=== PATIENT | female | born 1955 | race Two or more races ===

== ENCOUNTER 2020-10-26 14:45 | Emergency (ER) | payer MEDICARE, MEDICAID ==
[~2020-10-26] VITALS: Ht 160 cm; Wt 86.2 kg
[2020-10-26] MEDS ORDERED: cefTRIAXone SOD 1,000 MG VL IM ONE (17:30)
[2020-10-26] MEDS ORDERED: LIDOCAINE 1% HCL (LOCAL ANESTH.) INJ 20ML MDV ONE (17:48)
[2020-10-26 17:50] VITALS: BP 103/56
== END 2020-10-26 17:55 | disposition home or self-care (01) ==
LOC: ER 14:45
DX: K11.20 Sialoadenitis, unspecified (principal); J44.9 Chronic obstructive pulmonary disease, unspecified; E11.9 Type 2 diabetes mellitus without complications
CPT/HCPCS: 96372; 99283; J0696; J2001

== ENCOUNTER 2024-04-05 11:35 | Inpatient (IN) | payer MEDICARE, MEDICAID ==
[~2024-04-05] VITALS: Ht 157.5 cm; Wt 86.3 kg
[2024-04-05] MEDS: SODIUM CHLORIDE 0.9% 1,000 ML IV ONE (13:18)
[2024-04-05] MEDS: cefTRIAXone 1GM/50ML D5W 50 ML IV ONE (13:24)
[2024-04-05] MEDS: ALBUTEROL SULF 2.5 MG/0.5ML(0.5%) NEB SOLN NEB ONE ×2 (13:27→13:35)
[2024-04-05] MEDS: IPRATROPIUM BROM 0.5 MG/2.5ML INH SOL NEB ONE ×2 (13:28→13:36)
[2024-04-05] MEDS: AZITHROMYCIN 500MG/ 250ML 250 ML IV ONE (13:33)
[2024-04-05] MEDS: methylPREDNISolone SOD SUCC 125 MG/2 ML VL IV ONE (13:36)
[2024-04-05 13:48] LABS: Basophils # (auto) 0.1 10 ^3/uL (0-0.2); Basophils % (auto) 0.7 % (0.0-2.0); Eosinophils # (auto) 0.5 10 ^3/uL (0-0.8); Eosinophils % (auto) 4.7 % (0.0-7.0); Hematocrit 36.8 % (36.0-46.0); Hemoglobin 11.7 g/dL (12.2-16.2); Lymphocytes # (auto) 3.9 10 ^3/uL (0.4-5.4); Lymphocytes % (auto) 40.1 % (10.0-50.0); Mean Corpuscular Hgb Conc. 31.9 g/dL (32.0-36.0); Mean Corpuscular Volume 84.4 fL (80.0-100.0); Monocytes % (auto) 9.9 % (0.0-12.0); Neutrophils # (auto) 4.3 10 ^3/uL (1.6-8.6); Neutrophils % (auto) 44.6 % (37.0-80.0); Nucleated Red Blood Cells % 0.1 %; Red Blood Cells 4.36 10^6/uL (4.0-5.20); Red Cell Distribution Width 16.9 % (11.8-14.3); White Blood Cell 9.8 10^3/uL (4.4-10.8)
[2024-04-05 13:49] LABS: Urine Bacteria MOD /hpf (None Seen); Urine Blood 1+ /uL (Negative); Urine Clarity Ex.Turbid (Clear); Urine Color Yellow (Yellow); Urine Protein, UAD 1+ (Negative); Urine Specific Gravity 1.018 (1.001-1.035); Urine Urobilinogen Normal (Negative); Urine WBC 1484 /hpf (0 - 5); Urine WBC Clumps PRESENT /hpf (None Seen); Urine pH 5.5 (5.0-9.0)
[2024-04-05 13:54] LABS: Chloride 106 mmol/L (98-107); Potassium 4.5 mmol/L (3.5-5.1); Sodium 139 mmol/L (136-145)
[2024-04-05 13:55] LABS: Anion Gap 7 (5-15); Carbon Dioxide 26 mmol/L (20-30)
[2024-04-05 14:00] LABS: Glucose 89 mg/dL (74-106)
[2024-04-05 14:01] LABS: BUN/Creatinine Ratio 10.4 (10.0-20.0); Blood Urea Nitrogen 12 mg/dL (9-23)
[2024-04-05 14:11] LABS: COVID19 ANTIGEN SOFIA FIA POSITIVE (NEGATIVE)
[2024-04-05 14:19] LABS: Lactic Acid w/Reflex 2.1 mmol/L (0.4-2.0)
[2024-04-05 14:40] VITALS: PULSE 82; RESP 18; O2SAT 93
[2024-04-05] MEDS: ONDANSETRON HCL 4 MG/2 ML VIAL IV ONE (14:48)
[2024-04-05] MEDS: ACETAMINOPHEN 500 MG TAB PO ONE (14:48)
[2024-04-05] MEDS ORDERED: HYDROmorphone HCL 2 MG/ML VL/or syr IV PRN (15:00)
[2024-04-05] MEDS ORDERED: DOCUSATE SOD 100 MG CAP PO PRN (15:00)
[2024-04-05] MEDS ORDERED: ONDANSETRON HCL 4 MG/2 ML VIAL IV PRN (15:00)
[2024-04-05] MEDS: LACTATED RINGER'S 1,000 ML IV ONE (16:16)
[2024-04-05] MEDS: methylPREDNISolone SOD SUCC 125 MG/2 ML VL IV SCH (16:17)
[2024-04-05 17:50] VITALS: BP 138/51; PULSE 70; RESP 18; TEMP 98.6; O2SAT 100
[2024-04-05 18:26] VITALS: BP 138/51; PULSE 70; RESP 18; TEMP 98.6; O2SAT 100
[2024-04-05 20:10] VITALS: BP 124/56; PULSE 57; RESP 17; TEMP 98.6; O2SAT 97
[2024-04-05 21:00] VITALS: BP 143/66; PULSE 69; RESP 19; TEMP 97.8; O2SAT 99
[2024-04-05] MEDS: ACETAMINOPHEN 325 MG TAB PO PRN (21:40)
[2024-04-05] MEDS: SODIUM CHLOR 0.9% PF (SALINE LOCK) 10ML VIAL/SYR IV SCH (21:47)
[2024-04-06] VITALS (11 sets, daily range): BP systolic 121–145; BP diastolic 56–78; PULSE 57–78; RESP 16–19; TEMP 97.8–98.7; O2SAT 97–98
[2024-04-06] MEDS: HYDROcodone-ACET 5/325MG TAB PO PRN (02:18)
[2024-04-06] MEDS: cefTRIAXone 1GM/50ML D5W 50 ML IV SCH (09:26)
[2024-04-06] MEDS: AZITHROMYCIN 500MG/ 250ML 250 ML IV SCH (10:38)
[2024-04-06] MEDS: ENOXAPARIN SOD 40 MG/0.4 ML SYRINGE SC SCH (10:38)
[2024-04-06] MEDS ORDERED: REMDESIVIR PER PHARMACY 0 ML IV SCH ×2 (13:45→18:00)
[2024-04-06] MEDS ORDERED: DEXTROSE (50%) 50ML SYRG IV PRN (13:45)
[2024-04-06 14:21] LABS: Alanine Aminotransferase 16 U/L (7-40); Albumin 4.2 g/dL (3.2-4.8); Alkaline Phosphatase 70 U/L (46-116); Aspartate Aminotransferase 24 U/L (13-40); Bilirubin, Total 0.2 mg/dL (0.2-1.0); Total Protein 7.4 g/dL (5.7-8.2)
[2024-04-06 14:37] LABS: Bilirubin, Direct < 0.1 mg/dL (<0.3)
[2024-04-06] MEDS: ALBUTEROL SULF HFA 90MCG INH 200DOSE IN PRN (15:05)
[2024-04-06] MEDS: REMDESIVIR 200 MG in NS 210ml LOADING DOSE ADULT IV ONE (16:30)
[2024-04-06] MEDS: ACCU-CHEK COMFORT CURVE STRIP VI SCH (16:43)
[2024-04-06] MEDS: PROMETHAZINE W/CODEINE 5 ML ORAL SYRUP PO PRN (16:51)
[2024-04-06] MEDS: InsuLIN REG 1unit/0.01ml Soln (100units/ml) SC SCH (16:51)
[2024-04-06] MEDS: BUDESONIDE (INHALATION) 180 MCG IH IN SCH (21:33)
[2024-04-07] VITALS (12 sets, daily range): BP systolic 135–146; BP diastolic 64–80; PULSE 61–98; RESP 18–19; TEMP 97.6–98.6; O2SAT 93–98
[2024-04-07 05:57] LABS: Basophils # (auto) 0 10 ^3/uL (0-0.2); Eosinophils # (auto) 0 10 ^3/uL (0-0.8); Hemoglobin 9.8 g/dL (12.2-16.2); Monocytes # (auto) 0.3 10 ^3/uL (0-1.3); Monocytes % (auto) 2.4 % (0.0-12.0)
[2024-04-07 06:00] LABS: Basophils % (auto) 0.1 % (0.0-2.0); Hematocrit 30.1 % (36.0-46.0); Lymphocytes # (auto) 1.4 10 ^3/uL (0.4-5.4); Lymphocytes % (auto) 10.7 % (10.0-50.0); Mean Corpuscular Hemoglobin 27.5 pg (28.0-32.0); Mean Corpuscular Hgb Conc. 32.6 g/dL (32.0-36.0); Mean Corpuscular Volume 84.2 fL (80.0-100.0); Neutrophils # (auto) 11.1 10 ^3/uL (1.6-8.6); Neutrophils % (auto) 86.8 % (37.0-80.0); Red Blood Cells 3.58 10^6/uL (4.0-5.20); Red Cell Distribution Width 16.6 % (11.8-14.3); White Blood Cell 12.8 10^3/uL (4.4-10.8)
[2024-04-07 06:10] LABS: Alanine Aminotransferase 16 U/L (7-40); Albumin 4.1 g/dL (3.2-4.8); Alkaline Phosphatase 64 U/L (46-116); Anion Gap 4 (5-15); Aspartate Aminotransferase 19 U/L (13-40); BUN/Creatinine Ratio 17.1 (10.0-20.0); Blood Urea Nitrogen 13 mg/dL (9-23); Calcium 9.7 mg/dL (8.5-10.1); Carbon Dioxide 25 mmol/L (20-30); Chloride 107 mmol/L (98-107); Glucose 160 mg/dL (74-106); Potassium 4.5 mmol/L (3.5-5.1); Sodium 136 mmol/L (136-145)
[2024-04-07 06:11] LABS: Bilirubin, Total 0.2 mg/dL (0.2-1.0); Total Protein 6.9 g/dL (5.7-8.2)
[2024-04-07] MEDS: ZINC SULFATE 220mg CAP or TAB PO SCH (09:46)
[2024-04-07] MEDS: REMDESIVIR 100mg 100 MG in SODIUM CHL 0.9% 230 ML IV SCH (15:26)
[2024-04-08] VITALS (10 sets, daily range): BP systolic 140–165; BP diastolic 70–94; PULSE 61–90; RESP 18–21; TEMP 97.9–98.4; O2SAT 93–97
[2024-04-08] MEDS: hydrALAZINE HCL 20 MG/ML VL IV PRN (18:12)
[2024-04-09] VITALS (11 sets, daily range): BP systolic 145–158; BP diastolic 64–85; PULSE 60–78; RESP 16–65; TEMP 97.7–98.7; O2SAT 20–97
[2024-04-10 00:54] VITALS: BP 141/52; PULSE 66; RESP 20; TEMP 98; O2SAT 95
[2024-04-10 05:00] VITALS: BP 139/74; PULSE 60; RESP 20; TEMP 98; O2SAT 97
[2024-04-10 08:00] VITALS: PULSE 57
[2024-04-10 09:00] VITALS: BP 146/72; PULSE 65; RESP 16; TEMP 97.7; O2SAT 95
[2024-04-10 10:20] VITALS: PULSE 65; RESP 18; O2SAT 97
[2024-04-10] MEDS ORDERED: AZITTAB PO ×2 (11:12→15:51)
[2024-04-10] MEDS ORDERED: METH4PAK PO ×2 (11:12→15:51)
[2024-04-10] MEDS ORDERED: CHOL1CAP47 PO ×2 (11:13→15:51)
[2024-04-10] MEDS ORDERED: ASCO500T11 PO ×2 (11:13→15:51)
[2024-04-10] MEDS ORDERED: ZINC220C10 PO ×2 (11:13→15:51)
[2024-04-10 13:00] VITALS: BP 146/84; PULSE 63; RESP 16; TEMP 98.4; O2SAT 95
== END 2024-04-10 17:15 | disposition home or self-care (01) | DRG 137 ==
LOC: ER 11:35 → OVERFLOW 15:06 → EAST 17:50 → TELE-EAST 04-06 13:54
PROVIDERS: ADMIT Internal Medicine; ATTEND Internal Medicine Geriatric Medicine
PROC: XW033E5 Introduction of Remdesivir Anti-infective into Peripheral Vein, Percutaneous Approach, New Technology Group 5 (ICD-10-PCS; principal; 2024-04-06)
DX: U07.1 COVID-19 (principal); J96.01 Acute respiratory failure with hypoxia; J12.82 Pneumonia due to coronavirus disease 2019; E87.20 Acidosis, unspecified; J45.901 Unspecified asthma with (acute) exacerbation; J44.0 Chronic obstructive pulmonary disease with (acute) lower respiratory infection; N39.0 Urinary tract infection, site not specified; J44.1 Chronic obstructive pulmonary disease with (acute) exacerbation; E11.9 Type 2 diabetes mellitus without complications; E03.9 Hypothyroidism, unspecified; I10 Essential (primary) hypertension; H92.01 Otalgia, right ear; F03.90 Unspecified dementia, unspecified severity, without behavioral disturbance, psychotic disturbance, mood disturbance, and anxiety; Z79.899 Other long term (current) drug therapy
CPT/HCPCS: 36415; 71045; 80048; 80053; 80076; 81001; 82728; 82962; 83036; 83605; 85025; 85379; 86141; 87040; 87426; 94640; 96361; 96365; 96368; 96375; G0378; J1815; J2405

== ENCOUNTER 2024-11-05 16:20 | Emergency (ER) | payer MEDICARE, MEDICAID ==
[~2024-11-05] VITALS: Ht 157.5 cm; Wt 77.2 kg
[~2024-11-05 16:20] MED LIST: ASCO500T11 PO; AZITTAB PO; CHOL1CAP47 PO; METH4PAK PO; ZINC220C10 PO
--- NOTE | 2024-11-05 16:38 | ED.PDOC ---
HPI (NEURO) HPI Comments 69y F who presents to the ED for chief complaint of generalized weakness. Pt states she has been having generalized weakness for the past 4 days. Pt states she has been having associated nausea, headache and R sided neck pain getting progressively worse. Pt states she been to PCP for similar complaints and states she was dx with migraines and given Imitrex and [place]. Pt otherwise denies any fall or injury. Pt is alert and oriented x 4 and able to answer all questions. Pt has noted stable vitals with temp of 97.6 F with all other vitals in normal range. Pt otherwise denies any recent sick contacts at this time. Patient states that she utilize the Imitrex, but it was not effective in reducing her headache. Vital signs were stable on arrival. Time Seen by MD: 16:36 Primary Care Provider: NOEMI Information Source: Patient Mode of Arrival: Ambulatory Brought in by: self Severity: Moderate Headache Severity: Moderate Timing: Days Duration: Since onset Prehospital treatment: None Headache Location: Occipital Onset: At rest Circumstances: Spontaneous Symptoms: None Before: Normal History of: Other (Patient states a history of migraine headaches.) Associated Signs and Symptoms: Headache Past Medical History PAST MEDICAL HISTORY: Asthma, COPD, DM, Thyroid Surgical History: Denies all surgeries CASTING ROOM HELPER History: No Pertinent CASTING ROOM HELPER History Family History Family History: Reviewed,noncontributory to illness Social History Smoker: Non-Smoker Alcohol: Occasionally Drugs: Denies Drug Use Lives In: Home Constitutional: reports: malaise, weakness; denies: chills, diaphoresis, fatigue, fever, sweats, others EENTM: denies: blurred vision, double vision, ear bleeding, ear discharge, ear drainage, ear pain, ear ringing, eye pain, eye redness, hearing loss, mouth pain, mouth swelling, nasal discharge, nose bleeding, nose congestion, nose pain, photophobia, tearing, throat pain, throat swelling, voice changes, others Respiratory: denies: cough, hemoptysis, orthopnea, SOB at rest, shortness of breath, SOB with excertion, stridor, wheezing, others Cardiovascular: denies: chest pain, dizzy spells, diaphoresis, Dyspnea on exertion, edema, irregular heart beat, left arm pain, lightheadedness, palpitations, PND, syncope, others Gastrointestinal: reports: nausea; denies: abdomen distended, abdominal pain, blood streaked bowels, constipated, diarrhea, dysphagia, difficulty swallowing, hematemesis, melena, poor appetite, poor fluid intake, rectal bleeding, rectal pain, vomiting, others Genitourinary: denies: abnormal vagina bleeding, burning, dyspareunia, dysuria, flank pain, frequency, hematuria, incontinence, pain, , vagina discharge, urgency, others Neurological: reports: headache, weakness; denies: dizziness, fainting, left sided numbness, left sided weakness, numbness, paresthesia, pre-existing deficit, right sided numbness, right sided weakness, seizure, speech problems, tingling, tremors, others Musculoskeletal: reports: neck pain; denies: back pain, gout, joint pain, joint swelling, muscle pain, muscle stiffness, others Integumetry: denies: bruises, change in color, change in hair/nails, dryness, laceration, lesions, lumps, rash, wounds, others Allergic/Immunocompromised: denies: Difficulty Healing, Frequent Infections, Hives, Itching, others Hematologic/Lymphatic: denies: anemia, blood clots, easy bleeding, easy bruising, swollen glands, others Endocrine: denies: excessive hunger, excessive sweating, excessive thirst, excessive urination, flushing, intolerance to cold, intolerance to heat, unexplained weight gain, unexplained weight loss, others Psychiatric: denies: anxiety, bipolar disorder, depression, hopeless, panic disorder, schizophrenia, sleepless, suicidal, others All Other Systems: Reviewed and Negative Physical Exam General Appearance: Moderate Distress ([id number] distress due to right- sided head and neck pain. Patient did not look toxic.), Normal HEENT: Head (Unremarkable cranial evaluation. No signs of trauma. No skull depressions or deformities.), Normal ENT Inspection, Pharynx Normal, TMs Normal Neck: Other (Diffuse bilateral posterior cervical tenderness to palpation with right-sided greater than left. Moderate hypertonicity appreciated. No chao or raccoon signs. Moderate reduced range of motion.) Respiratory: Chest Non-Tender, Lungs Clear, No Accessory Muscle Use, No Respiratory Distress, Normal Breath Sounds Cardiovascular: No Edema, No JVD, No Murmur, No Gallop, Normal Peripheral Pulses, Regular Rate/Rhythm Breast Exam: Deferred Gastrointestinal: No Organomegaly, Non Tender, No Pulsatile Mass, Normal Bowel Sounds, Soft Genitalia: Deferred Pelvic: Deferred Rectal: Deferred Extremities: No calf tenderness, Normal capillary refill, Normal inspection, Normal range of motion, Non-tender, No pedal edema Neurologic: Alert, molder machine II-XII nml as Tested, No Motor Deficits, Normal Affect, Normal Mood, No Sensory Deficits Cerebellar Function: Normal Reflexes: Normal Skin: Dry, Normal Color, Warm Lymphatic: No Adenopathy Was a procedure done? Was a procedure done?: No Differential Diagnosis (SZ) General Weakness: Anemia, Dehydration, Electrolyte imbalance, Encephalopathy, Hypoglycemia Headache: Migraine, Sinusitis, Other (Hemorrhage, subdural hematoma, migraine, cervical vertebrae fracture, degenerative disc disease of the cervical spine with neuropathy) X-Ray, Labs, Meds, VS Vital Signs Date Time Temp Pulse Resp B/P (MAP) Pulse Ox O2 Delivery O2 Flow Rate FiO2 11/05/24 17:44 74 18 74 Room Air 11/05/24 17:44 74 18 117/84 (95) 96 11/05/24 16:35 73 11/05/24 16:33 97.6 72 18 128/67 (87) 98 Lab Test 11/05/24 16:50 Range/Units White Blood Count 5.7 4.4-10.8 10^3/uL Red Blood Count 4.31 4.0-5.20 10^6/uL Hemoglobin 11.6 L 12.2-16.2 g/dL Hematocrit 35.9 L 36.0-46.0 % Mean Corpuscular Volume 83.3 80.0-100.0 fL Mean Corpuscular Hemoglobin 26.9 L 28.0-32.0 pg Mean Corpuscular Hemoglobin Concent 32.3 32.0-36.0 g/dL Red Cell Distribution Width 18.1 H 11.8-14.3 % Platelet Count 326 140-450 10^3/uL Mean Platelet Volume 6.7 L 6.9-10.8 fL Neutrophils (%) (Auto) 59.5 37.0-80.0 % Lymphocytes (%) (Auto) 30.3 10.0-50.0 % Monocytes (%) (Auto) 7.2 0.0-12.0 % Eosinophils (%) (Auto) 2.7 0.0-7.0 % Basophils (%) (Auto) 0.3 0.0-2.0 % Neutrophils # (Auto) 3.4 1.6-8.6 10 ^3/uL Lymphocytes # (Auto) 1.7 0.4-5.4 10 ^3/uL Monocytes # (Auto) 0.4 0-1.3 10 ^3/uL Eosinophils # (Auto) 0.2 0-0.8 10 ^3/uL Basophils # (Auto) 0 0-0.2 10 ^3/uL Nucleated Red Blood Cells 0.1 % Sodium Level 138 136-145 mmol/L Potassium Level 3.5 3.5-5.1 mmol/L Chloride Level 108 H 98-107 mmol/L Carbon Dioxide Level 19 L 20-31 mmol/L Anion Gap 11 5-15 Blood Urea Nitrogen 14 9-23 mg/dL Creatinine 0.89 0.550-1.02 mg/dL Glomerular Filtration Rate Calc 70 >90 mL/min BUN/Creatinine Ratio 15.7 10.0-20.0 Serum Glucose 91 74-106 mg/dL Calcium Level 9.7 8.7-10.4 mg/dL Troponin I High Sensitivity 3 L </=34 ng/L Current Medications Medications (Trade) Dose Ordered Sig/Jos Route Start Time Stop Time Status Last Admin Metoclopramide HCl (Reglan Injection) 10 mg ONCE ONCE IM 11/05/24 16:45 11/05/24 16:46 DC 11/05/24 17:43 Ondansetron HCl (Zofran) 4 mg ONCE ONCE IM 11/05/24 16:45 11/05/24 16:46 DC 11/05/24 17:43 [place] [id number] Ph: [phone] DIAGNOSTIC IMAGING Diagnostic Imaging Report : [id number] Signed PATIENT: CELENA IQBAL ACCT: [id number] UNIT: [id number] : 1955 LOC: ER ROOM / BED: / AGE / SEX: 69 / F ADM STATUS: REG ER SERVICE 1631 ORDERING PHYSICIAN: CESAR HANKINS PAC PROCEDURE(s): HWOCT - HEAD WITHOUT CONTRAST REASON: Right-sided posterior headache ORDER NUMBER(s): [id number], ACCESSION NUMBER(s): [id number] CLINICAL HISTORY: Right-sided posterior headache TECHNIQUE: Helical imaging carried out from skull base to vertex without intravenous contrast. This exam was performed according to our departmental dose optimization program. Up-to-date CT equipment and radiation dose reduction techniques are utilized as appropriate. CTDIVol: [CTDIvol] mGy DLP: 805.23 mGy-cm WID: COMPARISON: None FINDINGS: Incidental bilateral basal ganglia calcifications. The ventricles and subarachnoid spaces are normal in size and configuration for patient age. Mild patchy low attenuation in the cerebral white matter consistent with nonspecific white matter disease. There is no midline shift or mass effect. The hernandez white matter interfaces are maintained. The basal cisterns are patent. There is no evidence of acute intracranial hemorrhage or extra-axial fluid collection. The mastoid air cells and visualized paranasal sinuses are well-aerated. Prior ocular lens replacement. IMPRESSION: 1. No acute intracranial abnormality. 2. Mild chronic microvascular ischemic change. ATED BY: DORIS GOMEZ MD DICTATED DATE/TIME: 11/05/241725 SIGNED BY: DORIS GOMEZ MD SIGNED DATE/TIME: 11/05/241725 CC: [place] [id number] Ph: [phone] DIAGNOSTIC IMAGING Diagnostic Imaging Report : [id number] Signed PATIENT: CELENA IQBAL ACCT: [id number] UNIT: [id number] : 1955 LOC: ER ROOM / BED: / AGE / SEX: 69 / F ADM STATUS: REG ER SERVICE 1631 ORDERING PHYSICIAN: CESAR HANKINS PAC PROCEDURE(s): CS2 - CERVICAL WITHOUT CONTRAST REASON: Right-sided head and neck pain ORDER NUMBER(s): [id number], ACCESSION NUMBER(s): [id number] EXAM: CT CERVICAL WITHOUT CONTRAST INDICATION: Right-sided head and neck pain EXAM DATE: 11/05/2024 04:53 PM COMPARISON: None TECHNIQUE: Multiple axial CT images of the cervical spine were obtained using bone algorithm. Axial and coronal reformatting was done. Bone and soft tissue windows were reviewed. Radiation Dose Information: CT Dose: CTDI volume is 19.47 mGy. Dose-length product is 404.42 mGy*cm FINDINGS: The cervical alignment is intact. No acute cervical spine fracture is identified. The vertebral body heights are intact. No suspicious osseous lesions are identified. Degenerative disc changes worse at C3-4 C5-C6. Grade 1 anterior spondylolisthesis C3-4 Reversal of the normal cervical lordotic curve at C3-C4 and C5. Severe degenerative disc changes at C4-C5 and C6. There is no prevertebral soft tissue swelling. IMPRESSION: 1. No evidence of acute cervical spine fracture or traumatic malalignment. 2. Severe degenerative disc changes at C4-C5 and C6. 3. Grade 1 anterior spondylolisthesis C3-4 4. Reversal of the normal cervical lordotic curve at C3-C4 and C5. All CT scans at this medical facility are performed using dose modulation techniques as appropriate to a performed exam including the following: Automated exposure control was utilized; adjustment of the MA and/or KV according to patient size; and use of iterative reconstruction technique. ATED BY: JAZZ JACOBS Jr., DO DICTATED DATE/TIME: 11/05/241718 SIGNED BY: JAZZ JACOBS Jr., SIGNED DATE/TIME: 11/05/241718 CC: X-Ray, Labs, Meds, VS Comment All studies performed the ED were evaluated by me personally. Laboratories were unremarkable for any acute systemic process. EKG was unremarkable for any acute coronary concerns. CT of the head was unremarkable for any cranial concern or mass. Cervical spine CT revealed degenerative disc disease at multiple levels. I believe that is the culprit for the patient's neck and headache pain concerns. Advised patient follow up with the primary care provider for discussions related to long-term management. Time of 1ST Reevaluation: 18:04 Reevaluation 1ST: Improved Consultation: PCP, Other (Orthopedist) Patient Education/Counseling: Diagnosis, Treatment Family Education/Counseling: Diagnosis, Treatment, No Family Present Additional Information - I reviewed the following notes from patient's past medical encounters: - The following tests were ordered, and results were reviewed by me: (Labs, X- Ray, EKG): troponin x 1, BMP, CBC, EKG x1, CT cervical without contrast, CT head without contrast, - Additional information was gathered from interviewing the following independent Historian: (Family, Other Providers, EMT): none - I reviewed and agreed with the following test results read by other provider: (X-ray, CT, US): radiologist - I discussed treatments and results with medical personnel and: (consultants, family): none Departure 1 Departure Time of Disposition: 18:04 Impression: Primary Impression: Degenerative joint disease of cervical spine Additional Impression: Cervical radiculopathy Disposition: HOME / SELF CARE / HOMELESS Condition: Stable Additional Instructions: Advised patient utilize medication as needed for symptomatic pain relief in additionally, patient needs to follow up with her primary care provider for continued discussions related to today's findings. e-Prescriptions Ondansetron Odt 4MG Tab (ZOFRAN PO) 4 Mg Tb 4 MG PO Q6HP PRN, #20 TAB ODT TAB-DISSOLVE IN MOUTH, THEN SWALLOW Prov: CESAR HANKINS PAC 11/05/24 Gabapentin (Gabapentin) 300 Mg Cap 1 CAP PO Q6HP PRN, #20 CAP 0 Refills Prov: CESAR HANKINS PAC 11/05/24 Discharged With: Self, Friend Critical Care Note Critical Care Time?: No Stability Stability form required: No Heart Score Heart Score: Heart Score Response (Comments) Value History Slightly Suspicious 0 EKG Repolarization Disturb 1 Age >65 2 Risk Factors 1 or 2 risk factors 1 Troponin Normal limit 0 Total 4 I personally scribed for CESAR HANKINS PAC ([email or web address]) on 11/05/24 at 16:38. Elec tronically submitted by Gabbi De Guzman ([email or web address]). I personally scribed for CESAR HANKINS PAC ([email or web address]) on 11/05/24 at 16:49. Electronically submitted by Gabbi De Guzman ([email or web address]). I personally scribed for CESAR HANKINS PAC ([email or web address]) on 11/05/24 at 17:59. Electronically submitted by Gabbi De Guzman ([email or web address]). CESAR HANKINS PAC Nov 05, 2024 16:38
[2024-11-05 17:13] LABS: Basophils # (auto) 0 10 ^3/uL (0-0.2); Basophils % (auto) 0.3 % (0.0-2.0); Eosinophils # (auto) 0.2 10 ^3/uL (0-0.8); Hemoglobin 11.6 g/dL (12.2-16.2); Mean Corpuscular Volume 83.3 fL (80.0-100.0); Nucleated Red Blood Cells % 0.1 %
[2024-11-05 17:15] LABS: Eosinophils % (auto) 2.7 % (0.0-7.0); Hematocrit 35.9 % (36.0-46.0); Lymphocytes # (auto) 1.7 10 ^3/uL (0.4-5.4); Lymphocytes % (auto) 30.3 % (10.0-50.0); Mean Corpuscular Hemoglobin 26.9 pg (28.0-32.0); Mean Corpuscular Hgb Conc. 32.3 g/dL (32.0-36.0); Monocytes # (auto) 0.4 10 ^3/uL (0-1.3); Monocytes % (auto) 7.2 % (0.0-12.0); Neutrophils # (auto) 3.4 10 ^3/uL (1.6-8.6); Neutrophils % (auto) 59.5 % (37.0-80.0); Platelet Count (auto) 326 10^3/uL (140-450); Red Blood Cells 4.31 10^6/uL (4.0-5.20); Red Cell Distribution Width 18.1 % (11.8-14.3); White Blood Cell 5.7 10^3/uL (4.4-10.8)
[2024-11-05 17:21] LABS: BUN/Creatinine Ratio 15.7 (10.0-20.0); Blood Urea Nitrogen 14 mg/dL (9-23); Glucose 91 mg/dL (74-106)
--- NOTE | 2024-11-05 17:21 | DVH ---
EXAM: CT CERVICAL WITHOUT CONTRAST INDICATION: Right-sided head and neck pain EXAM DATE: 11/05/2024 04:53 PM COMPARISON: None TECHNIQUE: Multiple axial CT images of the cervical spine were obtained using bone algorithm. Axial a nd coronal reformatting was done. Bone and soft tissue windows were reviewed. Radiation Dose Information: CT Dose: CTDI volume is 19.47 mGy. Dose-length product is 404.42 mGy*cm FINDINGS: The cervical alignment is intact. No acute cervical spine fracture is identified. The vertebral body heights are intact. No suspicious osseous lesions are identified. Degenerative disc changes worse at C3-4 C5-C6. Grade 1 anterior spondylolisthesis C3-4 Reversal of the normal cervical lordotic curve at C3-C4 and C5. Severe degenerative disc changes at C4-C5 and C6. There is no prevertebral soft tissue swelling. IMPRESSION: 1. No evidence of acute cervical spine fracture or traumatic malalignment. 2. Severe degenerative disc changes at C4-C5 and C6. 3. Grade 1 anterior spondylolisthesis C3-4 4. Reversal of the normal cervical lordotic curve at C3-C4 and C5. All CT scans at this medical facility are performed using dose modulation techniques as appropriate t o a performed exam including the following: Automated exposure control was utilized; adjustment of th e MA and/or KV according to patient size; and use of iterative reconstruction technique.
[2024-11-05 17:26] LABS: Anion Gap 11 (5-15)
[2024-11-05 17:27] LABS: Calcium 9.7 mg/dL (8.7-10.4); Carbon Dioxide 19 mmol/L (20-31); Chloride 108 mmol/L (98-107); Potassium 3.5 mmol/L (3.5-5.1); Sodium 138 mmol/L (136-145)
--- NOTE | 2024-11-05 17:29 | DVH ---
CLINICAL HISTORY: Right-sided posterior headache TECHNIQUE: Helical imaging carried out from skull base to vertex without intravenous contrast. This e xam was performed according to our departmental dose optimization program. Up-to-date CT equipment an d radiation dose reduction techniques are utilized as appropriate. CTDIVol: [CTDIvol] mGy DLP: 805.23 mGy-cm WID: COMPARISON: None FINDINGS: Incidental bilateral basal ganglia calcifications. The ventricles and subarachnoid spaces are normal in size and configuration for patient age. Mild pat kasey low attenuation in the cerebral white matter consistent with nonspecific white matter disease. Th ere is no midline shift or mass effect. The hernandez white matter interfaces are maintained. The basal ci sterns are patent. There is no evidence of acute intracranial hemorrhage or extra-axial fluid collect ion. The mastoid air cells and visualized paranasal sinuses are well-aerated. Prior ocular lens repla cement. IMPRESSION: 1. No acute intracranial abnormality. 2. Mild chronic microvascular ischemic change.
[2024-11-05] MEDS: ONDANSETRON HCL 4 MG/2 ML VIAL IM ONE (17:43)
[2024-11-05] MEDS: METOCLOPRAMIDE HCL 5MG/ml INJ 2ml VIAL IM ONE (17:43)
[2024-11-05] MEDS ORDERED: GABA-1250 PO (18:05)
[2024-11-05] MEDS ORDERED: ZOFR4T PO (18:05)
[2024-11-05 18:17] VITALS: BP 115/66; PULSE 75; RESP 18; TEMP 98.9; O2SAT 95
--- NOTE | 2024-11-05 19:09 | ECG ---
[facility] Test Date: 2024-11-05 Test Time: 16:35:09 Pat Name: CELENA IQBAL Department: ER Room: Gender: F Business Lawyer: KEN : 1955 Requested By: CESAR HANKINS Order Number: [id number] Reading MD: Jacoby Sauceda Measurements Intervals [place] Rate: 73 P: 25 CA: 154 QRS: 20 QRSD: 95 T: 57 QT: 372 QTc: 410 Interpretive Statements Sinus rhythm Electronically Signed On 11-06-2024 14:19:57 PST by Jacoby Sauceda Please click the below link to view image of tracing.
== END 2024-11-05 18:18 | disposition home or self-care (01) ==
LOC: ER 16:20
DX: M47.22 Other spondylosis with radiculopathy, cervical region (principal); E11.9 Type 2 diabetes mellitus without complications; J44.9 Chronic obstructive pulmonary disease, unspecified
CPT/HCPCS: 36415; 70450; 72125; 80048; 84484; 85025; 93005; 96372; 99285; J2405; J2765